=== PATIENT | female | born 1945 | race Caucasian/White ===

== ENCOUNTER 2020-03-29 10:56 | Emergency (ER) | payer MEDICARE, OTHER ==
[2020-03-29 11:04] VITALS: BP 142/59
[2020-03-29] MEDS ORDERED: DIPH/PERTUSS(ACELL)/TETANUS VAC/PF 0.5 ML SYR (>=10YO) IM ONE (11:24)
[2020-03-29] MEDS ORDERED: CEPHALEXIN 500 MG CAPSULE PO ONE (11:24)
--- NOTE | 2020-03-29 11:30 | ER Document Report ---
HPI - HPI Time Seen by Provider: 03/29/20 11:24 Pain Level: 2 Notes: CHIEF COMPLAINT: Bleeding from finger wound HPI: 74-year-old female presenting to the emergency department complaining of bleeding from the left fourth finger over the last 3 days. 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 States that wound has sealed. Patient took off a piece of the tip of the left fourth finger 3 days ago and when she washes her hands it opens up and continues to bleed. She states she is on Plavix for heart issues. ROS: See HPI - all other systems were reviewed and are otherwise negative Constitutional: no fever Integumentary: Positive laceration Allergy: no hives Musculoskeletal: no extremity pain or swelling Neurological: no numbness/tingling, no weakness MEDICATIONS: I agree with the patient medications as charted by the RN. ALLERGIES: I agree with the allergies as charted by the RN. PAST MEDICAL HISTORY/PAST SURGICAL HISTORY: Reviewed and agree as charted by RN. SOCIAL HISTORY: Reviewed and agree as charted by RN. FAMILY HISTORY: No significant familial comorbid conditions directly related to patient complaint EXAM: Reviewed vital signs as charted by RN. CONSTITUTIONAL: Alert and oriented and responds appropriately to questions. Well-appearing; well-nourished HEAD: Normocephalic; atraumatic EYES: Conjunctivae clear, sclerae non-icteric ENT: normal nose; no rhinorrhea; moist mucous membranes NECK: Supple without meningismus CARD: symmetric distal pulses RESP: Normal chest excursion without splinting or tachypnea ABD/GI: non-distended. BACK: The back appears normal EXT: Normal ROM in all joints; no cyanosis, no effusions, no edema SKIN: Normal color for age and race; warm; dry; good turgor; superficial 1 cm triangular type wound on the radial side of the medial phalange of the left third finger. This wound is sealed. There is a superficial area of avulsed skin from the radial side of the tip of the distal phalanx left fourth finger. No nail involvement. This area does ooze blood when uncovered. No visible bone. NEURO: Moves all extremities equally; Motor and sensory function intact PSYCH: The patient's mood and manner are appropriate. Grooming and personal hygiene are appropriate. MDM: 74-year-old female laceration to the left third finger 5 days ago avulsion of skin and tissue from the left fourth finger [address] will place a quick clot dressing over the wound area she will leave this for [address] the patient on a short course of antibiotics. Follow-up PCP wound check. We will update tetanus status. There is no indication for closure given the nature of the wound and timeframe Past Medical History - Social History Smoking Status: Never Smoker Frequency of alcohol use: None Drug Abuse: None Family History: Reviewed & Not Pertinent Course - Vital Signs Vital signs: Temp Pulse Resp BP Pulse Ox 98.4 F 70 16 142/59 H 97 03/29/20 11:03 03/29/20 11:03 03/29/20 11:03 03/29/20 11:03 03/29/20 11:03 Discharge - Discharge Clinical Impression: Hypercoagulable state Laceration of finger of left hand with complication Qualifiers: Encounter type: initial encounter Qualified Code(s): S61.412A - Laceration without foreign body of left hand, initial encounter Condition: Stable Disposition: HOME, SELF-CARE Additional Instructions: Leave the dressing on the finger for the next 2 days. Then gently remove the top dressing after soaking in water. The quick clot type dressing should slowly dissolve over time do not remove this dressing. Follow-up for wound check with your primary care provider in 2 days call for appointment. Take the antibiotics as prescribed to help prevent secondary infection Prescriptions: Cephalexin Monohydrate [Keflex 500 mg Capsule] 500 mg PO Q6H 7 Days #28 capsule
== END 2020-03-29 11:50 | disposition home or self-care (01) ==
LOC: ER 10:56
DX: S61.213A Laceration without foreign body of left middle finger without damage to nail, initial encounter (principal); R79.89 Other specified abnormal findings of blood chemistry; W26.0XXA Contact with knife, initial encounter; Y93.G1 Activity, food preparation and clean up; Z79.02 Long term (current) use of antithrombotics/antiplatelets
CPT/HCPCS: 99283; 90471; 90715; A9270